=== PATIENT | male | born 1995 | race African-American/Black ===

== ENCOUNTER 2017-06-18 00:12 | Emergency (ER) | payer OTHER ==
[~2017-06-18] VITALS: Ht 188 cm; Wt 63.5 kg
--- NOTE | ~2017-06-18 | CR72 ---
[facility] A Service of [facility] & [facility] RADIOLOGY TEXT RESULTS PATIENT: ELVIN BHAKTA LOCATION: [facility] : [birth year] UNIT #: [id number] AGE: [address]: Riaz Guerrero SEX: M ORDER DR: [id number] [facility] [address], [place] [address] [id number] MR#: [id number] Acc #: [id number] NAME: ELVIN BHAKTA : 1995 SEX: M STUDY DATE/TIME: 06/18/2017 5:03 UNIT: [facility] ROOM: STUDY DESCRIPTION: CR Chest Single View Portable Attending Physician: Riaz Guerrero Ordering Physician: Riaz Guerrero, Resident Primary Care Physician: [facility] MEDICAL IMAGING REPORT This report is preliminary unless electronic signature is present EXAM Portable chest. INDICATIONS Chest and back pain for the past 2 days. PROCEDURE Frontal view chest. COMPARISON None FINDINGS Heart size within normal limits. No dense consolidation, pleural fluid, or pneumothorax. IMPRESSION No active process. Dictated by... Chda Mcclain M.D. THIS IS AN ELECTRONICALLY VERIFIED REPORT Chad Mcclain M.D. at 06/18/2017 9:52 PM Kristi TD: 06/18/2017 13:50 JOB #: [id number] MEDICAL IMAGING REPORT Page 1 of 1 COPY
--- NOTE | ~2017-06-18 | EKG ---
PATIENT: ELVIN BHAKTA UNIT #: [id number] Ventricular Rate: 44 BPM Atrial Rate: 44 BPM P-R Interval: 150 ms QRS Duration: 112 ms Q-T Interval: 456 ms QTC Calculation(Bezet): 389 ms P [place]: 79 degrees Calculated R [place]: 78 degrees Calculated T [place]: 70 degrees Diagnosis Line: Marked sinus bradycardia Diagnosis Line: Abnormal ECG Diagnosis Line: No previous ECGs available Diagnosis Line: Confirmed by BRIAN TRAN MD ([id number]) on Diagnosis Line: 06/19/2017 8:28:31 AM INTERPRETING MD: CHELSEA WELLS
[2017-06-18 06:11] LABS: BASOPHIL# 0.1 X10e3 (0-0.3); BASOPHIL% 0.6 % (0-2.5); EOSINOPHIL# 0.1 X10e3 (0-0.7); HEMATOCRIT 42.3 % (38.0-50.0); HEMOGLOBIN 14.1 gm/dL (13.0-16.0); LYMPHOCYTE# 2.9 X10e3 (1.0-3.5); LYMPHOCYTE% 30.1 % (17.0-45.0); MEAN CELL VOLUME 84.6 FL (83-96); MEAN CORPUSCULAR HEMOGLOBIN 28.2 PG (28-34); MEAN CORPUSCULAR HGB CONC 33.3 g/dL (30-36); MEAN PLATELET VOLUME 8.7 FL (6.5-11.5); MONOCYTE# 0.9 X10e3 (0-1.0); MONOCYTE% 9.1 % (3.0-12.0); NEUTROPHIL# 5.6 X10e3 (1.5-7.1); NEUTROPHIL% 59.2 % (40-75); PLATELET COUNT 207 X10e3 (140-420); RED CELL DISTRIBUTION WIDTH 13.5 % (11.0-15.5); WHITE BLOOD COUNT 9.5 X10e3 (4.0-10.5)
[2017-06-18 06:18] LABS: DIFF IND NO
[2017-06-18 06:21] LABS: POC - CKMB 1.5 ng/mL (0.0-7.9); POC - TROPONIN <0.05 ng/mL (<=0.05)
[2017-06-18 06:39] LABS: BILIRUBIN,TOTAL 1.6 mg/dL (0.2-2.0); BUN/CREATININE RATIO 15.55; CALCIUM SERUM 9.7 mg/dL (8.4-10.2); CREATININE SERUM 0.9 mg/dL (0.6-1.4); POTASSIUM 3.9 mmol/L (3.5-5.1)
== END 2017-06-18 07:15 | disposition home or self-care (01) ==
LOC: CED 00:12
PROVIDERS: Nurse Practitioner
DX: R09.1 Pleurisy (principal); R00.1 Bradycardia, unspecified; F17.210 Nicotine dependence, cigarettes, uncomplicated
CPT/HCPCS: 36415; 71010; 80053; 82553; 84484; 85025; 85379; 93005; 96374; 99284; J1885